=== PATIENT | male | born 1960 | race Hispanic/Latino ===

== ENCOUNTER 2021-09-09 10:02 | Observation (INO) | payer OTHER ==
[2021-09-07 10:05] LABS: BASOPHILS % (AUTO) 0.2 % (0.0-5.0); EOSINOPHILS % (AUTO) 0.3 % (0.0-8.0); HEMATOCRIT 39.4 % (42-54); LYMPHOCYTES % (AUTO) 29.6 % (21.0-51.0); MEAN CORPUSCULAR HEMOGLOBIN 29.6 pg (27.0-33.0); MEAN CORPUSCULAR HGB CONC 34.3 g/dL (32.0-36.0); MEAN CORPUSCULAR VOLUME 86.4 fL (79-99); MONOCYTES % (AUTO) 6.4 % (3.0-13.0); NEUTROPHILS % (AUTO) 63.3 % (40.0-77.0); PLATELET COUNT (AUTO) 261 K/uL (130-400); RED BLOOD CELL COUNT(AUTO) 4.56 MIL/uL (4.50-6.20); RED CELL DISTRIBUTION WIDTH 12.2 % (11.0-15.5); WHITE BLOOD COUNT (AUTO) 6.5 K/uL (4.8-10.8)
[2021-09-07 10:18] LABS: CREATININE 1.2 mg/dL (0.5-1.5); POTASSIUM 4.4 mmol/L (3.5-5.1)
[2021-09-08 09:59] VITALS: BP 158/99
[2021-09-09] VITALS (21 sets, daily range): BP systolic 93–151; BP diastolic 68–97
[~2021-09-09] VITALS: Ht 175.3 cm; Wt 90.4 kg
[~2021-09-09 10:02] MED LIST: CEFAZOLIN SODIUM 2 GM VIAL IV SCH; LOSA100T58 PO; MULT-1296 PO
[2021-09-09] MEDS ORDERED: CEFAZOLIN SODIUM 1 GM VIAL ONE ×3 (10:42→15:15)
[2021-09-09] MEDS ORDERED: LACTATED RINGERS 1000ML 1,000 ML IV ONE (10:42)
[2021-09-09] MEDS ORDERED: LIDOCAINE PF 100MG/5ML (2%) SYRINGE 5ML ONE (11:21)
[2021-09-09] MEDS ORDERED: GLYCOPYRROLATE 1 MG/5 ML SYRINGE ONE (11:21)
[2021-09-09] MEDS ORDERED: SUCCINYLCHOLINE 200MG/10ML SYR ONE (11:21)
[2021-09-09] MEDS ORDERED: DEXAMETHASONE SOD PHOSPHATE 10MG/ML 1ML VIAL ONE (11:21)
[2021-09-09] MEDS ORDERED: PROPOFOL 10 MG/ML 20ML VIAL IV ONE (11:21)
[2021-09-09] MEDS ORDERED: SUCCINYLCHOLINE CHLORIDE 20 MG/ML 10 ML VIAL ONE (11:21)
[2021-09-09] MEDS ORDERED: ONDANSETRON 4MG INJ ONE (11:21)
[2021-09-09] MEDS ORDERED: ROCURONIUM 10MG/1ML SYR 10 MG/ML ML ONE (11:22)
[2021-09-09] MEDS ORDERED: FENTANYL CITRATE PF 50 MCG/1 ML 2ML VIAL ONE ×2 (11:22→14:53)
[2021-09-09] MEDS ORDERED: NEOSTIGMINE 5MG/5ML SYR IV ONE (11:22)
[2021-09-09] MEDS ORDERED: MIDAZOLAM HCL 1 MG/ML 2ML VIAL ONE (11:22)
[2021-09-09] MEDS ORDERED: ROPIVACAINE 0.5% 5MG/ML 30ML IJ ONE (11:29)
[2021-09-09] MEDS ORDERED: VANCOMYCIN 1G VIAL ONE (11:30)
[2021-09-09] MEDS ORDERED: POTASSIUM CHLORIDE 10% ELIXIR 20 MEQ/15 ML UDCUP PO PRN (17:30)
[2021-09-09] MEDS: ACETAMINOPHEN 500 MG TABLET PO SCH (17:30)
[2021-09-09] MEDS ORDERED: CALCIUM CARB 500MG PO PRN (17:30)
[2021-09-09] MEDS ORDERED: OXYCODONE HCL 5 MG TAB PO PRN ×2 (17:30)
[2021-09-09] MEDS ORDERED: LIDOCAINE HCL-MPF 1% 2ML VIAL IV PRN (17:30)
[2021-09-09] MEDS ORDERED: KCL 20 MEQ ERTAB PO PRN (17:30)
[2021-09-09] MEDS ORDERED: FERROUS FUMARATE 324 MG TABLET PO PRN (17:30)
[2021-09-09] MEDS ORDERED: DIPHENHYDRAMINE HCL 25 MG CAPSULE PO PRN (17:30)
[2021-09-09] MEDS: 0.9%NACL 1000ML 1,000 ML IV SCH ×2 (17:30→19:59)
[2021-09-09] MEDS ORDERED: POTASSIUM CHLORIDE 20MEQ/100ML 100 ML IV PRN (17:30)
[2021-09-09] MEDS ORDERED: KETOROLAC 15MG/ML VIAL (15MG/ML) IV PRN (17:30)
[2021-09-09] MEDS ORDERED: PROMETHAZINE HCL 25 MG/ML 1ML AMPULE IM PRN (17:30)
[2021-09-09] MEDS: CEFAZOLIN SODIUM 1 GM VIAL IVP SCH (17:30)
[2021-09-09] MEDS ORDERED: TRAMADOL HCL 50 MG TABLET PO PRN (17:30)
[2021-09-09] MEDS ORDERED: TEMAZEPAM 15 MG CAPSULE PO PRN (17:30)
[2021-09-09] MEDS: FAMOTIDINE 20MG TAB PO SCH (19:58)
[2021-09-09] MEDS: ASPIRIN 81 MG EC TAB PO SCH (19:58)
[2021-09-09] MEDS: PREGABALIN 25 MG CAP PO SCH (19:58)
[2021-09-09] MEDS: CELECOXIB 200 MG CAP PO SCH (19:58)
[2021-09-10] MEDS: CEFAZOLIN SODIUM 1 GM VIAL IVP SCH ×2 (00:57→09:34)
[2021-09-10] MEDS: ACETAMINOPHEN 500 MG TABLET PO SCH ×2 (00:57→09:37)
[2021-09-10] MEDS: 0.9%NACL 1000ML 1,000 ML IV SCH ×2 (02:45→05:40)
[2021-09-10 04:21] VITALS: BP 120/66
[2021-09-10 06:34] LABS: HEMATOCRIT 30.3 % (42-54); MEAN CORPUSCULAR HEMOGLOBIN 29.8 pg (27.0-33.0); MEAN CORPUSCULAR VOLUME 90.2 fL (79-99); RED BLOOD CELL COUNT(AUTO) 3.36 MIL/uL (4.50-6.20); RED CELL DISTRIBUTION WIDTH 12.7 % (11.0-15.5); WHITE BLOOD COUNT (AUTO) 11.2 K/uL (4.8-10.8)
[2021-09-10 06:44] LABS: CREATININE 1.1 mg/dL (0.5-1.5); POTASSIUM 4.1 mmol/L (3.5-5.1)
[2021-09-10 08:00] VITALS: BP 144/86
[2021-09-10] MEDS ORDERED: LOSARTAN 100 MG TABLET PO SCH (09:00)
[2021-09-10] MEDS ORDERED: TAMSULOSIN HCL 0.4 MG CAP.ER.24H PO SCH (09:00)
[2021-09-10] MEDS ORDERED: POLYETHYLENE GLYCOL 3350 17 GM POWD.PACK PO SCH (09:00)
[2021-09-10] MEDS: FAMOTIDINE 20MG TAB PO SCH (09:35)
[2021-09-10] MEDS: PREGABALIN 25 MG CAP PO SCH (09:35)
[2021-09-10] MEDS: CELECOXIB 200 MG CAP PO SCH (09:35)
[2021-09-10] MEDS: ASPIRIN 81 MG EC TAB PO SCH (09:35)
[2021-09-10] MEDS ORDERED: HYDR-4060 PO (09:53)
[2021-09-10] MEDS ORDERED: CEPH500B PO (09:53)
[2021-09-10] MEDS ORDERED: FERR324T10 PO (11:15)
[2021-09-10 12:00] VITALS: BP 159/84
[2021-09-10] MEDS ORDERED: PSYLLIUM SEED 1 EACH PACKET PO SCH (12:00)
== END 2021-09-10 16:00 | disposition home or self-care (01) ==
LOC: DAH 10:02 → 3DH 17:15 → DAH 17:41
PROVIDERS: ADMIT Orthopaedic Surgery; ATTEND Orthopaedic Surgery
DX: S42.411 Displaced simple supracondylar fracture without intercondylar fracture of right humerus (principal); Z20.822 Contact with and (suspected) exposure to COVID-19; I10 Essential (primary) hypertension; G89.29 Other chronic pain; M25.521 Pain in right elbow; M25.321 Other instability, right elbow; Z96.9 Presence of functional implant, unspecified; Z79.899 Other long term (current) drug therapy; Z98.890 Other specified postprocedural states; V98.8XXD Other specified transport accidents, subsequent encounter
CPT/HCPCS: 20680; 20702; 36415 ×2; 64415; 73080; 76942; 80048 ×2; 85025; 85027; 87070 ×2; 87076 ×2; 87077 ×3; 87186 ×3; 87205 ×2; 87635; 96374; A4215; A4221; A4222; A4223; A4649 ×2; A4663; A4930; A5120; C9803; G0378 ×22; J0330 ×2; J0690 ×5; J1100; J1885; J2001; J2250; J2405; J2704; J2710; J2795; J3010 ×2; J3370; J3490; J7030 ×2; J7120 ×2; 96361

== ENCOUNTER 2021-10-15 14:00 | Inpatient (IN) | payer OTHER ==
[~2021-10-15] VITALS: Ht 175.3 cm; Wt 89.2 kg
[~2021-10-15 14:00] MED LIST changes: -CEFAZOLIN SODIUM 2 GM VIAL IV SCH; -MULT-1296 PO
[2021-10-18 11:36] LABS: BASOPHILS % (AUTO) 0.3 % (0.0-5.0); EOSINOPHILS % (AUTO) 0.3 % (0.0-8.0); HEMATOCRIT 42.6 % (42-54); LYMPHOCYTES % (AUTO) 30.8 % (21.0-51.0); MEAN CORPUSCULAR HEMOGLOBIN 29.9 pg (27.0-33.0); MEAN CORPUSCULAR HGB CONC 33.3 g/dL (32.0-36.0); MEAN CORPUSCULAR VOLUME 89.7 fL (79-99); MONOCYTES % (AUTO) 6.2 % (3.0-13.0); NEUTROPHILS % (AUTO) 62.1 % (40.0-77.0); PLATELET COUNT (AUTO) 252 K/uL (130-400); RED BLOOD CELL COUNT(AUTO) 4.75 MIL/uL (4.50-6.20); RED CELL DISTRIBUTION WIDTH 12.2 % (11.0-15.5); WHITE BLOOD COUNT (AUTO) 6.3 K/uL (4.8-10.8)
[2021-10-18 11:51] LABS: INR 1.03 (0.85-1.15); PROTHROMBIN TIME 11.2 SEC (9.6-11.6)
[2021-10-18 11:52] LABS: CREATININE 1.3 mg/dL (0.5-1.5); POTASSIUM 4.7 mmol/L (3.5-5.1)
[2021-10-18 12:06] LABS: APPEARANCE,URINE CLEAR (CLEAR); BILIRUBIN,URINE NEGATIVE (NEGATIVE); COLOR,URINE YELLOW (YELLOW); GLUCOSE, URINE (UA) NEGATIVE (NEGATIVE); KETONES,URINE NEGATIVE (NEGATIVE); LEUKOCYTE ESTERASE ,URINE NEGATIVE (NEGATIVE); NITRATE,URINE NEGATIVE (NEGATIVE); OCCULT BLOOD,URINE NEGATIVE (NEGATIVE); PROTEIN,URINE NEGATIVE (NEGATIVE); UROBILINOGEN,URINE 0.2 mg/dL (0.2-1.0)
[2021-10-20 10:32] VITALS: BP 145/74
[2021-10-20] MEDS ORDERED: HYDR-4060 PO (11:02)
[2021-10-21] VITALS (18 sets, daily range): BP systolic 96–125; BP diastolic 54–93
[2021-10-21] MEDS ORDERED: LACTATED RINGERS 1000ML 1,000 ML IV ONE (09:30)
[2021-10-21] MEDS: CEFAZOLIN SODIUM 1 GM VIAL IVP SCH ×3 (10:00→21:15)
[2021-10-21] MEDS ORDERED: SULFAMETHOX-TMP DS 800/160 TAB PO ONE (11:00)
[2021-10-21] MEDS ORDERED: TRIMETHOPRIM IV ONE (11:30)
[2021-10-21] MEDS ORDERED: TRIMETHOPRIM IR ONE (11:30)
[2021-10-21] MEDS ORDERED: SULFAMETHOXAZOLE IV ONE (11:30)
[2021-10-21] MEDS ORDERED: SULFAMETHOXAZOLE IR ONE (11:30)
[2021-10-21] MEDS ORDERED: ONDANSETRON 4MG INJ ONE (12:14)
[2021-10-21] MEDS ORDERED: PROPOFOL 10 MG/ML 20ML VIAL IV ONE (12:15)
[2021-10-21] MEDS ORDERED: MIDAZOLAM HCL 1 MG/ML 2ML VIAL ONE (12:16)
[2021-10-21] MEDS ORDERED: ROCURONIUM 10MG/1ML SYR 10 MG/ML ML ONE ×2 (12:16→13:26)
[2021-10-21] MEDS ORDERED: ROPIVACAINE 0.5% 5MG/ML 30ML IJ ONE (12:18)
[2021-10-21] MEDS ORDERED: DEXAMETHASONE SOD PHOSPHATE 10MG/ML 1ML VIAL ONE (12:20)
[2021-10-21] MEDS ORDERED: FENTANYL CITRATE PF 50 MCG/1 ML 2ML VIAL ONE ×3 (12:21→17:27)
[2021-10-21] MEDS ORDERED: EPHEDRINE SULFATE 50 MG/ML AMPULE ONE (13:50)
[2021-10-21] MEDS ORDERED: TRANEXAMIC ACID 1000MG/10ML ONE (14:01)
[2021-10-21] MEDS ORDERED: CEFAZOLIN SODIUM 1 GM VIAL ONE ×2 (16:04→17:40)
[2021-10-21] MEDS: TOBRAMYCIN SULFATE POWDER 1.2 GM/VIAL IRRIG ONE ×2 (16:30→16:40)
[2021-10-21] MEDS ORDERED: GLYCOPYRROLATE 1 MG/5 ML SYRINGE ONE (17:27)
[2021-10-21] MEDS ORDERED: NEOSTIGMINE 5MG/5ML SYR IV ONE (17:27)
[2021-10-21] MEDS ORDERED: METOCLOPRAMIDE 10 MG/2 ML VIAL ONE (17:43)
[2021-10-21] MEDS ORDERED: KETOROLAC 30MG VIAL (30MG/ML) ONE (18:12)
[2021-10-21] MEDS ORDERED: KCL 20 MEQ ERTAB PO PRN (18:30)
[2021-10-21] MEDS ORDERED: OXYCODONE HCL 5 MG TAB PO PRN ×2 (18:30)
[2021-10-21] MEDS ORDERED: TEMAZEPAM 15 MG CAPSULE PO PRN (18:30)
[2021-10-21] MEDS ORDERED: DiphenhydrAMINE HCL 50 MG/ML VIAL IVP PRN (18:30)
[2021-10-21] MEDS ORDERED: FERROUS FUMARATE 324 MG TABLET PO PRN (18:30)
[2021-10-21] MEDS ORDERED: POTASSIUM CHLORIDE 20MEQ/100ML 100 ML IV PRN (18:30)
[2021-10-21] MEDS ORDERED: POTASSIUM CHLORIDE 10% ELIXIR 20 MEQ/15 ML UDCUP PO PRN (18:30)
[2021-10-21] MEDS ORDERED: KETOROLAC 30MG VIAL (30MG/ML) IV PRN (18:30)
[2021-10-21] MEDS ORDERED: LIDOCAINE HCL-MPF 1% 2ML VIAL IV PRN (18:30)
[2021-10-21] MEDS ORDERED: TRAMADOL HCL 50 MG TABLET PO PRN (18:30)
[2021-10-21] MEDS ORDERED: PROMETHAZINE HCL 25 MG/ML 1ML AMPULE IM PRN (18:30)
[2021-10-21] MEDS: 0.9%NACL 1000ML 1,000 ML IV SCH (18:30)
[2021-10-21] MEDS ORDERED: CALCIUM CARB 500MG PO PRN (18:30)
[2021-10-21] MEDS: ACETAMINOPHEN 500 MG TABLET PO SCH (21:15)
[2021-10-21] MEDS: CELECOXIB 200 MG CAP PO SCH (21:16)
[2021-10-21] MEDS: PREGABALIN 25 MG CAP PO SCH (21:16)
[2021-10-21] MEDS: FAMOTIDINE 20MG TAB PO SCH (21:16)
[2021-10-21] MEDS: ASPIRIN 81 MG EC TAB PO SCH (21:16)
[2021-10-21] MEDS: SULFAMETHOX-TMP DS 800/160 TAB PO SCH (21:16)
[2021-10-22] MEDS: CEFAZOLIN SODIUM 1 GM VIAL IVP SCH (03:30)
[2021-10-22] MEDS: ACETAMINOPHEN 500 MG TABLET PO SCH ×2 (03:30→12:20)
[2021-10-22] MEDS: 0.9%NACL 1000ML 1,000 ML IV SCH (03:31)
[2021-10-22 04:30] VITALS: BP 108/59
[2021-10-22 05:37] LABS: HEMATOCRIT 31.1 % (42-54); MEAN CORPUSCULAR HEMOGLOBIN 30.1 pg (27.0-33.0); MEAN CORPUSCULAR HGB CONC 33.4 g/dL (32.0-36.0); MEAN CORPUSCULAR VOLUME 90.1 fL (79-99); RED BLOOD CELL COUNT(AUTO) 3.45 MIL/uL (4.50-6.20); RED CELL DISTRIBUTION WIDTH 12.7 % (11.0-15.5); WHITE BLOOD COUNT (AUTO) 9.6 K/uL (4.8-10.8)
[2021-10-22 05:50] LABS: CREATININE 1.4 mg/dL (0.5-1.5); POTASSIUM 4.2 mmol/L (3.5-5.1)
[2021-10-22 08:00] VITALS: BP 126/75
[2021-10-22] MEDS: FAMOTIDINE 20MG TAB PO SCH (08:47)
[2021-10-22] MEDS: SULFAMETHOX-TMP DS 800/160 TAB PO SCH (08:47)
[2021-10-22] MEDS: CELECOXIB 200 MG CAP PO SCH (08:47)
[2021-10-22] MEDS: PREGABALIN 25 MG CAP PO SCH (08:47)
[2021-10-22] MEDS: ASPIRIN 81 MG EC TAB PO SCH (08:47)
[2021-10-22] MEDS ORDERED: POLYETHYLENE GLYCOL 3350 17 GM POWD.PACK PO SCH (09:00)
[2021-10-22] MEDS ORDERED: TAMSULOSIN HCL 0.4 MG CAP.ER.24H PO SCH (09:00)
[2021-10-22 12:00] VITALS: BP 126/72
[2021-10-22] MEDS ORDERED: HYDR-4060 PO ×2 (13:27→14:03)
[2021-10-22] MEDS ORDERED: Sulfamethox-Tmp Ds 800/160 Tab PO (13:27)
[2021-10-22] MEDS ORDERED: SULF1TAB42 PO (14:03)
[2021-10-23] MEDS ORDERED: BISACODYL 5 MG TABLET.DR PO PRN (18:30)
== END 2021-10-22 16:30 | disposition home or self-care (01) | DRG 483 ==
LOC: EDSTATUS 14:00 → DAHIP 10-21 09:07 → 3AH 10-21 19:26
PROVIDERS: ADMIT Orthopaedic Surgery; ATTEND Orthopaedic Surgery
PROC: 0RP Upper Joints, Removal (ICD-10-PCS; principal; 2021-10-21 12:41)
PROC: 0RRL0JZ Replacement of Right Elbow Joint with Synthetic Substitute, Open Approach (ICD-10-PCS; 2021-10-21 12:41)
PROC: 0LU Tendons, Supplement (ICD-10-PCS; 2021-10-21 12:41)
DX: S42.401K Unspecified fracture of lower end of right humerus, subsequent encounter for fracture with nonunion (principal); I10 Essential (primary) hypertension; Z82.49 Family history of ischemic heart disease and other diseases of the circulatory system; Z80.9 Family history of malignant neoplasm, unspecified; G89.29 Other chronic pain
CPT/HCPCS: 36415; 73080; 80048; 81003; 85025; 85027; 85610; 87070; 87076; 87088; 87205; 87635; 87641; G0378; J0690; J1100; J1885; J2250; J2405; J2704; J2710; J2765; J2795; J3010; J3260; J3490; J7120